=== PATIENT | male | born 1990 | race Caucasian/White ===

== ENCOUNTER 2018-07-16 16:24 | Emergency (ER) | payer SELFPAY ==
[2018-07-16 16:31] VITALS: BP 142/75; PULSE 82; TEMP 98.4; BMI 28.2
--- NOTE | 2018-07-16 16:31 | PDOC ---
Rapid Medical Evaluation Chief Complaint: Ear Problem Time Seen by Provider: 07/16/18 16:30 Medical Evaluation: Allergies Allergy/AdvReac Type Severity Reaction Status Date / Time cefadroxil Allergy Verified 07/16/18 16:28 07/16/18 16:31 I have performed a brief in-person evaluation of this patient. The patient presents with a chief complaint of: ringing to ear b/l x 2 days. No other acute sxs. H/o anxiety Pertinent physical exam findings:Stable and in NAD I have ordered the following:nothing The patient will proceed to the ED for further evaluation Discharge Disposition - Diagnosis Ringing in ears Qualifiers: Laterality: bilateral Qualified Code(s): H93.13 - Tinnitus, bilateral - Referrals - Patient Instructions - Post Discharge Activity
--- NOTE | 2018-07-16 17:51 | PDOC ---
History of Present Illness - General Chief Complaint: Ear Problem Stated Complaint: BOTH EARS RINGING Time Seen by Provider: 07/16/18 16:30 - History of Present Illness Initial Comments: 07/16/18 17:48 28-year-old male without comorbidities presents for evaluation of bilateral ear ringing 2 days without systemic symptoms or other associated symptoms. Past History - Past Medical History Allergies/Adverse Reactions: Allergies Allergy/AdvReac Type Severity Reaction Status Date / Time cefadroxil Allergy Verified 07/16/18 17:38 Home Medications: Ambulatory Orders Cetirizine HCl/Pseudoephedrine [Zyrtec-D Tablet] 1 each PO DAILY #30 tab.er.12h 07/16/18 COPD: No Psychiatric Problems: Yes (ANXITY) - Surgical History Abdominal Surgery: Yes (HERNIA REPAIR) - Immunization History Immunization Up to Date: Yes - Suicide/Smoking/Psychosocial Hx Smoking History: Current every day smoker Information on smoking cessation initiated: No Hx Alcohol Use: No Drug/Substance Use Hx: No Review of Systems - Review of Systems HEENTM: Yes: Tinnitus ABD/GI: No: Nausea, Vomiting Neurological: No: Headache, Tingling, Dizziness *Physical Exam - Vital Signs Last Vital Signs Temp Pulse Resp BP Pulse Ox 98.4 F 82 18 142/75 99 07/16/18 16:29 07/16/18 16:29 07/16/18 16:29 07/16/18 16:29 07/16/18 16:29 - Physical Exam Comments: 07/16/18 17:49 HEAD: NC/AT EYES: Conjuntiva clear Ears: Canals and TM's normal moderate cerumen in the R ear canal NOSE: No d/c THROAT: Moist mucous membrances, oral pharanx clear, uvula midline NECK: Supple without adenopathy CARDIAC: S1 S2 LUNGS: CTA Full and Equal breath sounds ABDOMEN: Soft NT ND MS: Full ROM in all joints without edema NEUROLOGIC: No gross sensory or motor deficits, NVID SKIN: Normal color and temperature no lesions or rashes Medical Decision Making - Medical Decision Making 07/16/18 17:50 We'll start preliminary treatment with decongestant and have patient follow-up with ENT. *DC/Admit/Observation/Transfer Diagnosis at time of Disposition: Ringing in ears Qualifiers: Laterality: bilateral Qualified Code(s): H93.13 - Tinnitus, bilateral - Discharge Dispostion Disposition: HOME Condition at time of disposition: Stable Decision to Admit order: No - Prescriptions Prescriptions: Cetirizine HCl/Pseudoephedrine [Zyrtec-D Tablet] 1 each PO DAILY #30 tab.er.12h - Referrals Referrals: Burton Montez MD [Staff Physician] - - Patient Instructions Additional Instructions: Please take the medication as directed. Return to the emergency room for worsening symptoms and follow-up with ear nose and throat in one to 2 days for further evaluation and treatment options. - Post Discharge Activity
== END 2018-07-16 17:55 | disposition home or self-care (01) ==
LOC: JERFT 16:24
DX: H93.13 Tinnitus, bilateral (principal); F41.9 Anxiety disorder, unspecified; F17.210 Nicotine dependence, cigarettes, uncomplicated
CPT/HCPCS: 99281-25

== ENCOUNTER 2019-01-02 16:21 | Emergency (ER) | payer OTHER ==
[2019-01-02 16:29] VITALS: BP 149/86; PULSE 79; TEMP 97.7; BMI 29.0
--- NOTE | 2019-01-02 16:32 | PDOC ---
Rapid Medical Evaluation Time Seen by Provider: 01/02/19 16:27 Medical Evaluation: Allergies Allergy/AdvReac Type Severity Reaction Status Date / Time cefadroxil Allergy Verified 07/16/18 17:38 01/02/19 16:28 I have performed a brief in-person evaluation of this patient. The patient presents with a chief complaint of: "I have really bad anxiety with crying spells". For the past week has been feeling depressed, cannot sleep, nausea. Denies ORDAZ/SI/VH/AH. Smokes weed. He has never seen a psychiatrist for his anxiety. Pertinent physical exam findings: Anxious affect, crying The patient will proceed to the ED for further evaluation. Discharge Disposition - Diagnosis Anxiety - Referrals - Patient Instructions - Post Discharge Activity
--- NOTE | 2019-01-02 17:58 | PDOC ---
History of Present Illness - General Chief Complaint: Psychiatric Stated Complaint: ANXIETY Time Seen by Provider: 01/02/19 16:27 Past History - Past Medical History Allergies/Adverse Reactions: Allergies Allergy/AdvReac Type Severity Reaction Status Date / Time cefadroxil Allergy Verified 01/02/19 16:29 Home Medications: Ambulatory Orders Cetirizine HCl/Pseudoephedrine [Zyrtec-D Tablet] 1 each PO DAILY #30 tab.er.12h 07/16/18 COPD: No Psychiatric Problems: Yes (ANXIETY) - Surgical History Abdominal Surgery: Yes (HERNIA REPAIR) - Immunization History Immunization Up to Date: Yes - Psycho Social/Smoking Cessation Hx Smoking History: Current every day smoker Information on smoking cessation initiated: No Hx Alcohol Use: No Drug/Substance Use Hx: Yes (MARIJUANA) *Physical Exam - Vital Signs Last Vital Signs Temp Pulse Resp BP Pulse Ox 97.7 F 79 16 149/86 100 01/02/19 16:26 01/02/19 16:26 01/02/19 16:26 01/02/19 16:26 01/02/19 16:26 Medical Decision Making - Medical Decision Making HPI: 28yo M with no reported PMH presenting with anxiety. Patient states he has never been diagnosed with a mental illness, given psychotropic medications, or been evaluated by a therapist/counselor/psychiatrist. He has had anxiety for "a while" but feels that it has gotten worse over the past two weeks such that he has frequent crying spells and panic attacks. He is a heavy marijuana smoker ( about $400/month) and finds that it makes his anxiety worse. Denies suicidal ideation and has never attempted suicide. No homicidal ideation, no audio/ visual hallucinations. Reports down/depressed mood, loss of interest in things, feelings of guilt, low energy, loss of appetite, poor sleep, and psychomotor retardation. Patient is currently unemployed. He called the hotline of his insurance company and was instructed to present to the ER for an outpatient mental health provider referral. No fevers or chills. ROS: Constitutional: no fever, no chills HEENT: no throat pain, no dysphagia Cardiovascular: no chest pain, no palpitations Respiratory: no cough, no shortness of breath Gastrointestinal: no abdominal pain, no constipation Genitourinary: no dysuria, no hematuria Musculoskeletal: no myalgia, no arthralgia Skin: no rash, no itching Neurologic: no headache, no weakness Psych: +anxious, +depressed mood PE: General: Awake, alert, and fully oriented, tearful, flattened affect Head: No signs of trauma Eyes: EOMI, sclera anicteric ENT: Moist mucus membranes Neck: Normal ROM, supple Lungs: Lungs clear, Normal breath sounds Cardio: Regular rhythm, S1 and S2 present Abdomen: Soft, nontender. No guarding, no rebound, no masses Extremities: Normal range of motion, Distal pulses present SKIN: Warm, Dry, normal turgor Neurologic: Cranial nerves II through XII grossly intact. Normal speech ED Course/MDM: DDX including but not limited to depression, anxiety, intoxication, hypothyroidism Patient meets DSM criteria for depression No SI/HI/AH/VH Safe to follow-up with outpatient mental health provider Advised to abstain from marijuana use Discharged with return precautions Discharge - Discharge Information Problems reviewed: Yes Clinical Impression/Diagnosis: Anxiety Condition: Stable Disposition: HOME - Follow up/Referral Referrals: Deepak Olivares NP [Nurse Practitioner] - Jamir Owusu NP [Nurse Practitioner] - Michelle Peng [Staff Physician] - - Patient Discharge Instructions Patient Printed Discharge Instructions: DI for Anxiety -- Adult Additional Instructions: You came into the emergency department for anxiety. We have referred you to a specialist. Call and make an appointment. Your workup is not complete until you do so. Immediate medical attention is required if you have: thoughts of self-harm, or an other new or concerning symptoms. If you think you are having an emergency, call for emergency medical services or present to the emergency department right away. - Post Discharge Activity Work/Back to School Note: My Personal Safety Plan
--- NOTE | 2019-01-02 18:09 | PDOC ---
Attending Attestation - Resident Resident Name: Zoila Rivers - ED Attending Attestation I have performed the following: I have examined & evaluated the patient, The case was reviewed & discussed with the resident, I agree w/resident's findings & plan, Exceptions are as noted - HPI HPI: 01/02/19 18:03 Mr. Andres is a 28 yo M who presents with family due to anxiety The patient has noted intermittent anxiety, tearfulness Pt called his insurance company who referred him to the ER The patient has no plans to harm himself or anyone else, no hallucinations No prior suicide attempts No prior psychiatric admissions Pt does use marijuanna 01/02/19 18:09 - Physicial Exam PE: 01/02/19 18:05 GENERAL: The patient is in no acute distress. HEAD: Normal EYES: PERRLA, EOMI, sclera anicteric, conjunctiva clear. ENT: Ears normal, nares patent, oropharynx clear without exudates. Moist mucous membranes. NECK: Normal range of motion, supple LUNGS: Breath sounds equal, clear to auscultation bilaterally. No wheezes, and no crackles. HEART:Regular rate and rhythm, normal S1 and S2 without murmur, rub or gallop. ABDOMEN: Soft, nontender, normoactive bowel sounds. EXTREMITIES: Normal range of motion, no edema. NEUROLOGICAL: Cranial nerves II through XII grossly intact. Normal speech. No focal neurological deficits. MUSCULOSKELETAL: Back non-tender to palpation SKIN: Warm, Dry, normal turgor, no rashes or lesions noted. - Medical Decision Making 01/02/19 18:08 Will discharge to home Will ask pt to follow up with psychiatry Return to the ER for any other concerns or complaints Pt has contracted for safety If he feels suicidal, homicidal he must return to the ER
== END 2019-01-02 18:37 | disposition home or self-care (01) ==
LOC: JER 16:21
DX: F41.9 Anxiety disorder, unspecified (principal); Z88.8 Allergy status to other drugs, medicaments and biological substances
CPT/HCPCS: 99282-25

== ENCOUNTER 2022-09-26 17:44 | Inpatient (IN) | payer OTHER ==
[2022-09-26 18:03] VITALS: BMI 35.2
[2022-09-26 22:57] LABS: INR 1.1 (0.83-1.09); PROTHROMBIN TIME (PATIENT) 12.8 SEC (9.7-13.0)
[2022-09-26 23:00] LABS: HEMATOCRIT 52.4 % (35.4-49); HEMOGLOBIN 18.2 G/dL (11.7-16.9); MCH 30.8 pg (25.7-33.7); MCHC 34.7 g/dl (32.0-35.9); MEAN CELL VOLUME 88.6 fl (80-96); MEAN PLT VOLUME 7.9 fl (7.5-11.1); PLATELET COUNT 375.1 10^3/uL (134-434); RBC 5.91 10^6/uL (4.00-5.60); RDW 13.4 % (11.9-15.9); WHITE BLOOD COUNT 14.3 10^3/uL (4.0-10.8)
[2022-09-26 23:10] LABS: ALBUMIN 4.7 g/dl (3.4-5.0); BILIRUBIN,TOTAL 0.8 mg/dl (0.2-1); BLOOD UREA NITROGEN 15.1 mg/dl (7-18); CALCIUM 9.9 mg/dl (8.5-10.1); CREATININE 1.1 mg/dl (0.6-1.3); POTASSIUM 4.5 mmol/L (3.5-5.1); SGPT/ALT 46.3 U/L (7-52); TOT PROT 7.3 g/dl (6.4-8.2)
[2022-09-26 23:46] LABS: PLATELET ESTIMATE ADEQUATE
[2022-09-26] MEDS ORDERED: ACETAMINOPHEN 1000 MG/100 ML BAG IVPB ONE (23:56)
[2022-09-27] MEDS ORDERED: SODIUM CHLORIDE 500 ML IV STA (00:55)
[2022-09-27] MEDS ORDERED: ACETAMINOPHEN INJECTION 100 ML IVPB ONE (00:58)
[2022-09-27] MEDS ORDERED: DOCUSATE SODIUM 100 MG CAPSULE (FP) PO PRN (01:00)
[2022-09-27] MEDS ORDERED: DEXTROSE 5%-NORMAL SALINE 1,000 ML IV SCH (01:00)
[2022-09-27] MEDS ORDERED: ACETAMINOPHEN 1000 MG/100 ML BAG IVPB PRN (06:00)
[2022-09-27] MEDS ORDERED: ONDANSETRON 4 MG/2 ML VIAL IVPUSH PRN ×2 (09:19→11:17)
[2022-09-27] MEDS ORDERED: oxyCODONE HCL 5 MG TABLET PO PRN ×3 (09:19→11:17)
[2022-09-27] MEDS ORDERED: LACTATED RINGERS SOLUTION 1,000 ML IV SCH (09:30)
[2022-09-27 10:04] LABS: POTASSIUM 5.1 mmol/L (3.5-5.1)
[2022-09-27 10:21] LABS: BLOOD UREA NITROGEN 15.5 mg/dL (7-18); CALCIUM 10.3 mg/dL (8.5-10.1)
[2022-09-27 10:24] LABS: CREATININE 1.2 mg/dL (0.55-1.3)
[2022-09-27 10:41] LABS: BASO % 0.7 % (0-2.0); EOS % 0.5 % (0-4.5); HEMATOCRIT 48.8 % (35.4-49); HEMOGLOBIN 16.8 GM/dL (11.7-16.9); MCHC 34.4 g/dl (32.0-35.9); MEAN CELL VOLUME 87.3 fl (80-96); MEAN PLT VOLUME 8.2 fl (7.5-11.1); MONO % 9.6 % (3.8-10.2); NEUT % 66.2 % (42.8-82.8); PLATELET COUNT 391 10^3/uL (134-434); RBC 5.59 M/mm3 (4.00-5.60); RDW 12.9 % (11.9-15.9); WHITE BLOOD COUNT 11.4 K/mm3 (4.0-10.0)
[2022-09-27] MEDS ORDERED: SODIUM CHLORIDE 1,000 ML IV SCH ×2 (11:15→15:21)
[2022-09-27 14:29] VITALS: RESP 18
[2022-09-27] MEDS: ACETAMINOPHEN 1000 MG/100 ML BAG IVPB SCH ×2 (17:09→22:57)
[2022-09-27] MEDS: POLYETHYLENE GLYCOL (HEALTHYLAX) 3350 17 GM PACKET PO SCH (17:13)
[2022-09-27] MEDS ORDERED: DOCUSATE SODIUM 100 MG CAPSULE (FP) PO SCH (22:00)
[2022-09-28] MEDS: ACETAMINOPHEN 1000 MG/100 ML BAG IVPB SCH ×2 (04:35→10:59)
[2022-09-28] MEDS ORDERED: ACETAMINOPHEN 325 MG TABLET (FP) PO PRN (06:00)
[2022-09-28 10:10] LABS: BASO % 0.6 % (0-2.0); HEMATOCRIT 45.6 % (35.4-49); HEMOGLOBIN 15.6 GM/dL (11.7-16.9); LYMPH % 20.9 % (8-40); MCH 29.8 pg (25.7-33.7); MCHC 34.1 g/dl (32.0-35.9); MEAN CELL VOLUME 87.2 fl (80-96); MONO % 8.8 % (3.8-10.2); NEUT % 68.7 % (42.8-82.8); PLATELET COUNT 366 10^3/uL (134-434); RBC 5.24 M/mm3 (4.00-5.60); RDW 12.7 % (11.9-15.9); WHITE BLOOD COUNT 10.1 K/mm3 (4.0-10.0)
[2022-09-28 10:26] LABS: POTASSIUM 4.9 mmol/L (3.5-5.1)
[2022-09-28 10:35] LABS: CALCIUM 9.8 mg/dL (8.5-10.1)
[2022-09-28 10:36] LABS: ALBUMIN 3.5 g/dl (3.4-5.0); BLOOD UREA NITROGEN 12.1 mg/dL (7-18)
[2022-09-28 10:40] LABS: BILIRUBIN,TOTAL 0.9 mg/dL (0.2-1)
[2022-09-28 10:41] LABS: TOT PROT 6.8 g/dl (6.4-8.2)
[2022-09-28] MEDS: POLYETHYLENE GLYCOL (HEALTHYLAX) 3350 17 GM PACKET PO SCH (12:48)
[2022-09-28 14:28] VITALS: BP 109/45; PULSE 65; TEMP 98.2
== END 2022-09-28 16:47 | disposition home or self-care (01) | DRG 223 ==
LOC: FER 17:44 → J6S 09-27 04:06
PROVIDERS: ADMIT Internal Medicine; ATTEND Internal Medicine
PROC: 0D9P0ZZ Drainage of Rectum, Open Approach (ICD-10-PCS; principal; 2022-09-27 09:30)
DX: K61.1 Rectal abscess (principal); D72.829 Elevated white blood cell count, unspecified
CPT/HCPCS: 36415; 71045-TC-FY; 72193-TC; 80048; 80053; 85025; 85027; 85610; 85730; 87070; 87077; 87186; 87205; 87635; 94760; 99285-25; Q9967